=== PATIENT | male | born 1965 | race Caucasian/White ===

== ENCOUNTER 2017-12-14 14:56 | Emergency (ER) | payer BC, OTHER ==
[2017-12-14 16:03] LABS: Absolute Lymphocytes (CBC) 2.5 K/uL (0.7-4.9); Absolute Monocytes 0.7 K/uL (0.1-1.3); Absolute Neutrophil 4.4 K/uL (1.8-8.0); Basophils % 0.4 % (0-1.3); Hematocrit 41.7 % (39.6-49.0); Lymphocytes % 32.4 % (15.3-44.8); MCH 31.4 pg (27.0-35.0); MCV 89.1 fL (80-100); MPV 8.3 fL (7.6-11.3); Monocytes % 9.1 % (3.3-12.3); Protime INR 1.18; RBC Red Blood Cell Count 4.68 M/uL (4.33-5.43)
[2017-12-14 16:23] LABS: ALT/SGPT 63 U/L (12-78); AST/SGOT 33 U/L (15-37); Albumin 3.4 g/dL (3.4-5.0); Alkaline Phosphatase 97 U/L (45-117); BUN Blood Urea Nitrogen 11 mg/dL (7-18); Bicarbonate 29 mmol/L (21-32); Bilirubin Direct 0.3 mg/dL (0-0.2); Bilirubin Total 0.8 mg/dL (0.2-1.0); Glucose Level 92 mg/dL (74-106); Lipase 170 U/L (73-393); Magnesium 2.2 mg/dL (1.8-2.4); NT PRO-BNP 106 pg/mL (<125); Potassium 3.8 mmol/L (3.5-5.1); Protein, Total 7.3 g/dL (6.4-8.2); Sodium Level 142 mmol/L (136-145); Troponin (Emerg Dept Use Only) < 0.02 ng/mL (0.0-0.045)
--- NOTE | 2017-12-14 16:36 | RAD REPORT ---
EXAM DESCRIPTION: Roseann Single View12/14/2017 3:52 pm CLINICAL HISTORY: Chest pain COMPARISON: none FINDINGS: The lungs appear clear of acute infiltrate. The heart is normal size IMPRESSION: No acute abnormalities displayed
--- NOTE | 2017-12-14 16:51 | EKG ---
Test Date: 2017-12-14 Test Time: 15:12:09 Airplane Pilot Photogrammetry: YIMI MEASUREMENT RESULTS: Intervals: Rate: 52 NH: 152 QRSD: 100 QT: 458 QTc: 425 [place]: P: 45 NH: 152 QRS: 48 T: 41 INTERPRETIVE STATEMENTS: Sinus bradycardia Otherwise normal ECG No previous ECG available for comparison Electronically Signed On 12-14-17 16:50:45 CDT by Emilio Fuentes
--- NOTE | 2017-12-14 17:30 | RAD REPORT ---
EXAM DESCRIPTION: US - Abdomen Exam Limited - 12/14/2017 5:24 pm CLINICAL HISTORY: Abdominal pain. COMPARISON: 2013 FINDINGS: The gallbladder wall is not thickened. Several small gallstones are present. . The biliary tree is normal caliber. IMPRESSION: Cholelithiasis without evidence cholecystitis
--- NOTE | 2017-12-14 19:19 | ER ---
Nurse's Notes [facility] Name: Shane Mcdowell Age: 52 yrs Sex: Male : 1965 Arrival Date: 12/14/2017 Time: 15:00 Bed 27 Private MD: Diagnosis: Other chest pain;Cholelithiasis Presentation: 12/14 15:00 Presenting complaint: Patient states: c/o pain to upper abd area/epigastric area, under iw his ribs bilaterally, episode lasted approx 45 minutes, described as dull pressure, non radiating, denies n/v, denies SOB, no dizziness, pain has resolved, no previous chest pain. Transition of care: patient was not received from another setting of care. Onset of symptoms was December 14, 2017. Risk Assessment: Do you want to hurt yourself or someone else? Patient reports no desire to harm self or others. Initial Sepsis Screen: Does the patient meet any 2 criteria? No. Patient's initial sepsis screen is negative. Does the patient have a suspected source of infection? No. Patient's initial sepsis screen is negative. Care prior to arrival: Medication(s) given: ASA, 81 mg, x 4, IV initiated. 20 GA, in the right antecubital area, Glucose check: 95. 15:00 Method Of Arrival: EMS: [facility] iw 15:00 Acuity: GRABIEL 3 iw Historical: - Allergies: 15:06 NKA; iw - Home Meds: 15:06 Crestor 40 mg oral tab 1 tab once daily [Active]; iw - PMHx: 15:06 Hyperlipidemia; iw - PSHx: 15:06 left knee; Lithotripsy; iw - Immunization history:: Adult Immunizations up to date. - Social history:: Smoking status: Patient uses tobacco products, chewing tobacco. - Ebola Screening: : Patient negative for fever greater than or equal to 101.5 degrees Fahrenheit, and additional compatible Ebola Virus Disease symptoms Patient denies exposure to infectious person Patient denies travel to an Ebola-affected area in the 21 days before illness onset No symptoms or risks identified at this time. Screenin:17 Abuse screen: Denies threats or abuse. Denies injuries from another. Nutritional iw screening: No deficits noted. Tuberculosis screening: No symptoms or risk factors identified. Fall Risk IV access (20 points). Assessment: 15:20 General: Appears in no apparent distress. comfortable, Behavior is calm, cooperative. iw Pain: Complains of pain in epigastric area, under ribs Pain does not radiate. Pain currently is 0 out of 10 on a pain scale. Pain began 1 hour ago. Neuro: Level of Consciousness is awake, alert, obeys commands. Cardiovascular: Patient's skin is warm and dry. 16:35 Reassessment: Patient appears in no apparent distress at this time. Patient and/or iw family updated on plan of care and expected duration. Pain level reassessed. Patient is alert, oriented x 3, equal unlabored respirations, skin warm/dry/pink. Patient denies pain at this time. 19:16 General: Appears in no apparent distress. comfortable, obese, Behavior is calm, iw cooperative, appropriate for age. Pain: Denies pain. Neuro: Level of Consciousness is awake, alert, obeys commands, Oriented to person, place, time, situation. Cardiovascular: Denies chest pain. Respiratory: Airway is patent Trachea midline Respiratory effort is even, unlabored, Respiratory pattern is regular, symmetrical. GI: Patient currently denies abdominal pain. : No deficits noted. EENT: No deficits noted. Derm: Skin is pink, warm \T\ dry. Musculoskeletal: Capillary refill < 3 seconds. 19:24 Reassessment: above assessment done by Azeem Ott RN. 19:25 Reassessment: Siena CUADRA in to see and examine pt. Vital Signs: 15:07 BP 136 / 76; Pulse 57; Resp 16; Temp 98.2; Pulse Ox 97% on R/A; Pain 0/10; iw 16:34 BP 128 / 65; Pulse 59; Resp 16; Pulse Ox 97% on R/A; iw 18:54 BP 122 / 74; Pulse 60; Resp 16; Pulse Ox 98% on R/A; Pain 0/10; iw 19:20 BP 121 / 78; Pulse 59; Resp 18; Temp 98.6; Pulse Ox 98% on R/A; Pain 0/10; ED Course: 15:00 Patient arrived in ED. iw 15:05 Triage completed. iw 15:07 Arm band placed on. iw 15:17 Juancho Wren PA is PHCP. cp 15:17 Abdoul Jackson MD is Attending Physician. cp 15:19 EKG done, by sales service technician. reviewed by Abdoul Jackson MD. sm3 15:45 Initial lab(s) drawn, by il, sent to lab. Maintain EMS IV. Dressing intact. Good blood jp3 return noted. Site clean \T\ dry. Gauge \T\ site: 20-gauge in Left A/C. 15:45 Basic Metabolic Panel Sent. jp3 15:45 CBC with Diff Sent. jp3 15:45 Lipase Sent. jp3 15:45 PT-INR Sent. jp3 15:45 Troponin (emerg Dept Use Only) Sent. jp3 15:45 NT PRO-BNP Sent. jp3 15:45 Magnesium Sent. jp3 15:45 LFT's Sent. jp3 15:46 Bed in low position. Call light in reach. Side rails up X 1. Warm blanket given. jp3 potline monitor on. Pulse ox on. NIBP on. 15:51 X-ray completed. Portable x-ray completed in exam room. Patient tolerated procedure ls3 well. 15:52 XRAY Chest (1 view) In Process Unspecified. EDMS 16:12 Brea Stout, RN is Primary Nurse. iw 17:25 US Abdomen Limited: RUQ/epigastric area In Process Unspecified. EDMS 19:28 EKG done, by ED staff, reviewed by Juancho CUADRA. 3 19:44 No provider procedures requiring assistance completed. IV discontinued, intact, fc bleeding controlled, No redness/swelling at site. Pressure dressing applied. Patient maintains SpO2 saturation greater than 95% on room air. Administered Medications: No medications were administered Outcome: 19:18 Discharge ordered by . kendrick 19:44 Discharged to home ambulatory, with family. fc 19:44 Condition: good 19:44 Discharge instructions given to patient, family, Instructed on discharge instructions, follow up and referral plans. Demonstrated understanding of instructions, follow-up care, Prescriptions given X none 19:54 Patient left the ED. fc Signatures: Dispatcher [employer] EDMS Kathy Ott RN RN fc Williams, Irene, RN RN iw Juancho Wren PA PA cp Montes, Shakira sm3 Adam Gunn jp3 Sameera Nieto ls3 Corrections: (The following items were deleted from the chart) 19:26 19:20 BP 126 / 76; Pulse 59bpm; Resp 18bpm; Pulse Ox 98% RA; Temp 98.6F; Pain 0/10; iw fc
--- NOTE | 2017-12-14 19:19 | EDPHYS ---
Physician Documentation [facility] Name: Shane Mcdowell Age: 52 yrs Sex: Male : 1965 Arrival Date: 12/14/2017 Time: 15:00 Bed 27 Private MD: ED Physician Abdoul Jackson HPI: 12/14 15:24 This 52 yrs old Male presents to ER via EMS with complaints of Chest Pain. cp 15:24 The patient or guardian reports chest pain that is located primarily in the diaphragm. cp 15:24 Onset: 1 hour(s) ago. The pain does not radiate. Associated signs and symptoms: cp Pertinent negatives: abdominal pain, cough, diaphoresis, headache, lower extremity pain, lower extremity swelling, shortness of breath, vomiting. The chest pain is described as a pressure. Duration: The patient or guardian reports a single episode, that is now resolved. Historical: - Allergies: 15:06 NKA; iw - Home Meds: 15:06 Crestor 40 mg oral tab 1 tab once daily [Active]; iw - PMHx: 15:06 Hyperlipidemia; iw - PSHx: 15:06 left knee; Lithotripsy; iw - Immunization history:: Adult Immunizations up to date. - Social history:: Smoking status: Patient uses tobacco products, chewing tobacco. - Ebola Screening: : Patient negative for fever greater than or equal to 101.5 degrees Fahrenheit, and additional compatible Ebola Virus Disease symptoms Patient denies exposure to infectious person Patient denies travel to an Ebola-affected area in the 21 days before illness onset No symptoms or risks identified at this time. ROS: 15:25 Eyes: Negative for injury, pain, redness, and discharge. cp 15:25 Constitutional: Negative for body aches, chills, fever, poor PO intake. 15:25 ENT: Negative for drainage from ear(s), ear pain, sore throat, difficulty swallowing, difficulty handling secretions. 15:25 Cardiovascular: Positive for chest pain, Negative for edema, palpitations. 15:25 Respiratory: Negative for cough, shortness of breath, wheezing. 15:25 Abdomen/GI: Negative for vomiting, diarrhea, constipation, black/tarry stool, rectal bleeding. 15:25 Back: Negative for pain at rest, pain with movement, radiated pain. 15:25 : Negative for urinary symptoms. 15:25 Skin: Negative for cellulitis, rash. 15:25 Neuro: Negative for altered mental status, headache, syncope, near syncope, weakness. 15:25 All other systems are negative. Exam: 15:20 ECG was reviewed by the Attending Physician. cp 15:30 Head/Face: Normocephalic, atraumatic. cp 15:30 Constitutional: The patient appears in no acute distress, alert, awake, comfortable, non-diaphoretic, non-toxic, well developed, well nourished. 15:30 Eyes: Periorbital structures: appear normal, Conjunctiva: normal, no exudate, no injection, Sclera: no appreciated abnormality, Lids and lashes: appear normal, bilaterally. 15:30 ENT: External ear(s): are unremarkable, Nose: is normal, Mouth: Lips: moist, Oral mucosa: moist, Posterior pharynx: is normal, airway is patent, no erythema, no exudate. 15:30 Neck: ROM/movement: is normal, is supple, without pain, no range of motions limitations, no nuchal rigidity. 15:30 Chest/axilla: Inspection: normal, Palpation: is normal, no crepitus, no tenderness. 15:30 Cardiovascular: Rate: bradycardic, Rhythm: regular, Pulses: Pulses are 2+ in right radial artery and left radial artery. Heart sounds: murmur, not appreciated, rub, not appreciated, gallop, not appreciated, Edema: is not appreciated, JVD: is not appreciated. 15:30 Respiratory: the patient does not display signs of respiratory distress, Respirations: normal, no use of accessory muscles, no retractions, no splinting, no tachypnea, labored breathing, is not present, Breath sounds: are clear throughout, no decreased breath sounds, no stridor, no wheezing. 15:30 Abdomen/GI: Inspection: abdomen appears normal, Bowel sounds: active, all quadrants, Palpation: abdomen is soft and non-tender, in all quadrants, rebound tenderness, is not appreciated, voluntary guarding, is not appreciated, involuntary guarding, is not appreciated. 15:30 Back: pain, is absent, ROM is normal. 15:30 Skin: cellulitis, is not appreciated, no rash present. 15:30 Neuro: Orientation: to person, place \T\ time. Mentation: lucid, able to follow commands, Cerebellar function: is grossly normal, Motor: moves all fours, strength is normal, Sensation: no obvious gross deficits. 19:26 ECG was reviewed by the Attending Physician. Vital Signs: 15:07 BP 136 / 76; Pulse 57; Resp 16; Temp 98.2; Pulse Ox 97% on R/A; Pain 0/10; iw 16:34 BP 128 / 65; Pulse 59; Resp 16; Pulse Ox 97% on R/A; iw 18:54 BP 122 / 74; Pulse 60; Resp 16; Pulse Ox 98% on R/A; Pain 0/10; iw 19:20 BP 121 / 78; Pulse 59; Resp 18; Temp 98.6; Pulse Ox 98% on R/A; Pain 0/10; fc MDM: 15:18 Patient medically screened. cp 16:00 Differential diagnosis: abnormal EKG, acute myocardial infarction, acute pericarditis, cp chest wall pain, cholecystitis, Cholelithiasis esophagitis, gastritis, gastroesophageal reflux disease (GERD), pancreatitis, pericarditis, pleurisy, pneumonia, pneumothorax, pulmonary embolus, stable angina, unstable angina. 19:17 The patient was not given aspirin in the Emergency Department. Patient reports taking aspirin within the past 24 hours. 19:17 Data reviewed: vital signs, nurses notes, lab test result(s), EKG, radiologic studies, cp plain films, ultrasound. Test interpretation: by ED physician or midlevel provider: ECG, plain radiologic studies. ED course: VSS. Chest pain resolved while in ED. Discussed results of US showing gallstones. Recommend low fat diet and f/u with PCP. 12/14 15:24 Order name: Basic Metabolic Panel; Complete Time: 16:29 cp 12/14 16:29 Interpretation: Normal except: GFR 88. 12/14 15:24 Order name: CBC with Diff; Complete Time: 16:29 cp 12/14 15:24 Order name: LFT's; Complete Time: 16:29 cp 12/14 16:29 Interpretation: Normal except: BILID 0.3; GLOB 3.9; A/G 0.9. 12/14 15:24 Order name: Magnesium; Complete Time: 16:29 cp 12/14 15:24 Order name: NT PRO-BNP; Complete Time: 16:29 cp 12/14 15:24 Order name: PT-INR; Complete Time: 16:31 cp 12/14 16:31 Interpretation: Abnormal: PT 14.0. cp 12/14 15:24 Order name: Troponin (emerg Dept Use Only); Complete Time: 16:29 cp 12/14 15:24 Order name: XRAY Chest (1 view); Complete Time: 17:07 cp 12/14 17:07 Interpretation: Report review. cp 12/14 15:24 Order name: EKG; Complete Time: 15:24 cp 12/14 15:24 Order name: Cardiac monitoring; Complete Time: 15:46 cp 12/14 15:24 Order name: Lipase; Complete Time: 16:29 cp 12/14 16:31 Order name: US Abdomen Limited: RUQ/epigastric area; Complete Time: 17:36 cp 12/14 17:36 Interpretation: Report reviewed. cp 12/14 18:20 Order name: EKG; Complete Time: 18:21 cp 12/14 18:20 Order name: Troponin I; Complete Time: 19:16 cp 12/14 19:16 Interpretation: Reviewed. cp 12/14 15:24 Order name: EKG - Nurse/Tech; Complete Time: 15:46 cp 12/14 15:24 Order name: IV Saline Lock; Complete Time: 15:46 cp 12/14 15:24 Order name: Labs collected and sent; Complete Time: 15:46 cp 12/14 15:24 Order name: O2 Per Protocol; Complete Time: 15:46 cp 12/14 15:24 Order name: O2 Sat Monitoring; Complete Time: 15:46 cp 12/14 16:31 Order name: NPO; Complete Time: 16:52 cp 12/14 18:20 Order name: EKG - Nurse/Tech; Complete Time: 19:26 cp EC:20 Rate is 52 beats/min. Rhythm is regular. GA interval is normal. QRS interval is normal. cp QT interval is normal. Interpreted by me. Reviewed by me. 19:26 Rate is 56 beats/min. Rhythm is regular. GA interval is normal. QRS interval is normal. cp QT interval is normal. T waves are Flattened in lead III. Interpreted by me. Reviewed by me. Administered Medications: No medications were administered Disposition: 12/14/17 19:18 Discharged to Home. Impression: Other chest pain, Cholelithiasis. - Condition is Stable. - Discharge Instructions: Nonspecific Chest Pain, Cholelithiasis, Aspirin and Your Heart. - Medication Reconciliation Form, Thank You Letter, Antibiotic Education, Prescription Opioid Use form. - Follow up: Private Physician; When: 1 - 2 days; Reason: Recheck today's complaints. - Problem is new. - Symptoms are resolved. Addendum: 12/16/2017 13:32 Co-signature as Attending Physician, Abdoul Jackson MD I agree with the assessment and k dr plan of care. Signatures: Dispatcher [employer] EDPA Abdoul Jackson MD MD [facility] Kathy Ott RN RN fc Brea Stout RN RN iw Juancho Wren PA PA cp Corrections: (The following items were deleted from the chart) 12/14 19:54 19:18 12/14/2017 19:18 Discharged to Home. Impression: Other chest pain; fc Cholelithiasis. Condition is Stable. Forms are Medication Reconciliation Form, Thank You Letter, Antibiotic Education, Prescription Opioid Use. Follow up: Private Physician; When: 1 - 2 days; Reason: Recheck today's complaints. Problem is new. Symptoms are resolved. cp
--- NOTE | 2017-12-15 08:13 | EKG ---
Test Date: 2017-12-14 Test Time: 19:22:22 Market Manager: PRAVEEN MEASUREMENT RESULTS: Intervals: Rate: 56 RI: 152 QRSD: 84 QT: 448 QTc: 432 [place]: P: 63 RI: 152 QRS: 58 T: 62 INTERPRETIVE STATEMENTS: Sinus bradycardia Otherwise normal ECG Compared to ECG 12/14/2017 15:12:09 No significant changes Electronically Signed On 12-15-17 08:13:08 CDT by Emilio Fuentes
== END 2017-12-14 19:54 | disposition home or self-care (01) ==
LOC: ER 14:56
DX: K80.20 Calculus of gallbladder without cholecystitis without obstruction (principal); E78.5 Hyperlipidemia, unspecified; Z72.0 Tobacco use
CPT/HCPCS: 36415; 71045; 76705; 80048; 80076; 83690; 83735; 83880; 84484; 85025; 85610; 93005; 99285